=== PATIENT | female | born 1990 | race Caucasian/White ===

== ENCOUNTER 2019-04-30 23:11 | Inpatient (IN) | payer MEDICAID, OTHER ==
[~2019-04-30] VITALS: Ht 165.1 cm; Wt 77.4 kg
[2019-04-30] MEDS ORDERED: PREN-93 PO (23:23)
[2019-04-30 23:24] VITALS: BP 116/74; PULSE 74; RESP 18; Ht 165.1 cm; Wt 77.4 kg
[2019-05-01] MEDS ORDERED: MAGNESIUM SULFATE 20 GM/500 ML 500 ML IV SCH (00:54)
[2019-05-01] MEDS ORDERED: MAGNESIUM SULFATE 4 GM/100 ML 100 ML IV ONE (01:00)
[2019-05-01] MEDS ORDERED: AZITHROMYCIN 500 MG TAB PO ONE (01:00)
[2019-05-01] MEDS ORDERED: AMPICILLIN 2 GM/NS (PMX) 100 ML IV ONE (01:00)
--- NOTE | 2019-05-01 01:26 | TRIAGE ---
OB Triage Datetime Report Generated by CPN: 05/01/2019 01:25 Datetime: 05/01/2019 00:26 Comments: u/s at bedside Datetime: 05/01/2019 00:00 Labor Evaluation Frequency: X1 Monitor Mode: External Duration (sec)2399: 60 Quality: Mild Pattern: Normal: <= 5 Contractions in 10 Minutes Resting Tone [place]: Relaxed Heart Rate FHR Baseline Rate: 140 Monitor Mode: External US Variability: Moderate 6-25 bpm Accelerations: 15X15 Decelerations: Variable Comments: REVIEWED BY DR PEÑA Datetime: 04/30/2019 23:27 Time of Arrival: 04/30/2019 22:59 EGA: 32.1 Arrived By: Wheelchair Arrived From: Home Chief Complaint: cramping and vaginal leaking Movement: Present Contractions: Occasional Contractions: 30 min Rupture of Membranes: Unsure Vaginal Bleeding: None Vaginal Discharge: Denies Recent Sexual Intercouse: Denies Abdominal Trauma: Not Applicable Patient Complaints: Contractions; Cramping Time Provider Notified: 05/01/2019 23:05 Provider Notified: MARIANA Initial Plan: u/a, nst Datetime: 04/30/2019 23:19 Assessment Type: Triage Maternal Assessment Level of Consciousness: Keenly Alert, Responsive DTR's/Clonus: DTRs 2+; No Clonus Headache: Denies Blurred Vision: No Respiratory Effort: Unlabored; Regular Rhythm; Equal Expansion Breath Sounds, Left: Clear and Equal Breath Sounds, Right: Clear and Equal Nausea/Vomiting: Denies RUQ Epigastric Pain: Denies Lower Extremities Edema: None Degree: None Upper Extremities Edema: None Degree: None Facial Edema: None Fall Risk Assessment History of Falling: (0) No Secondary Diagnosis: (0) No Ambulatory Aid: (0) Bedrest/Nurse Assist IV Therapy: (0) No Gait: (0) Normal/Bedrest/Immobile Mental Status: (0) Oriented to Own Ability Fall Score: 0 Fall Risk Score Definition: No Risk: No action required Pain Assessment Pain Scale: 2 Pain Presence: Intermittent Pain Type: Cramping Pain Location: Abdomen Pain Goal: 2 Pain Relief Measures: Comfort Measures
[2019-05-01] MEDS: BETAMET NA PHOS/AC(6 MG/ML) 2 ML INJ SYG IM SCH (01:48)
[2019-05-01] MEDS: LACTATED RINGER'S 1,000 ML IV SCH ×2 (02:02→15:16)
[2019-05-01] MEDS: MAGNESIUM SULFATE 20 GM/500 ML 500 ML IV SCH ×3 (02:29→20:55)
[2019-05-01] MEDS: AMPICILLIN 1 GM/NS (PMX) 50 ML IV SCH ×5 (06:00→21:58)
[2019-05-01] MEDS: PRENATAL VITAMIN PO SCH (09:16)
[2019-05-01] MEDS: ACETAMINOPHEN 325 MG TAB PO PRN ×4 (09:16→21:58)
[2019-05-01] MEDS: AZITHROMYCIN 250 MG TAB PO SCH (09:22)
--- NOTE | 2019-05-01 09:51 | HP ---
Date/Time of Note Date/Time of Note DATE: 05/01/19 TIME: 09:37 OB - History Hx of Present Free Text/Dictation 28y.o who had x2 c/s presents triage with ?SROM with infrequent uc's' which started at 04/30/1904/13/2230, pain level 2/10 Her first was done for PIH . BPP 8/8 RAJNI 6.1 MVP 2.3 ROM plus positive, CVL 3.2 EFW 1798gm +/- 270 11% admitted for management for PPROM at 32w2d. Chief Complaint: ?SROM Estimated Due Date: Jun 24, 2019 : 3 Para: 2 Spontaneous : 0 Therapeutic : 0 Care: Other Ultrasounds: Other Obstetrical Complications: None Medical Complications: None Past Family/Social History * Past Medical, Surgical, Family and Obstetric Histories reviewed from chart. Blood Type: O+ Rubella: immune RPR/VDRL: Negative GBS Status: Unknown HBsAG: Negative OB Admission Exam Vital Signs Vital Signs Vital Signs Date Temp Pulse Resp B/P (MAP) Pulse Ox O2 O2 Flow FiO2 Time Delivery Rate 04/30/19 98.8 74 18 116/74 Room Air 23:24 (88) Physical Exam HEENT: WNL Heart: Rhythm Normal Lungs: Clear, Equal Abdomen: WNL Extremities: Normal Reflexes: Normal Cervical Dilatation: other Effacement: Other Station: Other (no VE CVL 3.2) Membranes: Ruptured Amniotic Fluid: Clear Heart Rate: 140's Accelerations: Accelerations Present Decelerations: No Decelerations Varibility: Moderate Contractions on Admission: >10 Minutes Apart Intensity: Mild Last 72 hours Lab Results CBC & BMP 05/01/19 01:24 Liver Function Test 05/01/19 01:24 Alanine Aminotransferase (ALT/SGPT) 13 Albumin 3.4 Alkaline Phosphatase 136 H Aspartate Amino Transf (AST/SGOT) 14 L Direct Bilirubin 0.00 Total Protein 7.0 Magnesium Level Test 05/01/19 06:14 Magnesium Level 4.4 H OB Assessment/Plan Reason for admission: rupture of membranes Other Assessment: IUP 32w2d PPROM Plan: Other (ampicillin and azythromycin, BMZx2, Magnesium sulfate,) Other plan: perinatalogy. neonatalogy consult DELIA PEÑA MD May 01, 2019 09:47
--- NOTE | 2019-05-01 15:28 | CONS ---
Consultation Date/Type/Reason Admit Date/Time May 01, 2019 at 00:49 Date of Consultation: May 01, 2019 Type of Consult Medicine Reason for Consultation Requested by Dr. Sun to curriculum counselor mother regarding anticipated course and complications of delivery @ 32 completed weeks of rehman. Mother is a 28 yo [id number] with EDC 06/24/2019 (EGA 32 2/7 wks). complicated by previous sections X 2 and hx genital HSV with no overt infection or prodrome this . Mother presented to L&D early AM 05/01 with PPROM and infrequent contractions. U/S demonstrated single fetus with estimated wt 1798 gm, RAJNI 6.1, and BPP 8/8. Treated with Ampicillin/Azithromycin; Magnesium sulfate, and Betamethasone with 1st dose @ 0148 hrs 05/01. At this time, mother remains afebrile with very infrequent contractions and no further leakage of fluid or bleeding. Met with mother and extended family at bedside with polysom tech. Discussed high survival rate of infants born at this gestation, especially having completed a course of steroids >24 hours prior to delivery. Discussed high likelihood of recurrent labor and delivery by repeat section within 1 week of PPROM. Discussed major morbidity associated with pulmonary function and high probability of requiring some form of respiratory assistance. Discussed primary concern regarding intraamniotic infection in view of PPROM and complications in terms of infection and outcome. Addressed problems related to GI function and neurologic immaturity as pertains to tolerating and mastering nipple feedings and eventual discharge. Emphasized importance of providing mother's milk. Advised that all infants born at this g estation are admitted to the NICU and discharge generally occurs @ 36-37 weeks, although highly variable depending on hospital course. Assured mother of availability to address any questions which may arise. Date/Time of Note DATE: 05/01/19 TIME: 14:58 Past Medical History Home Meds Reported Medications Vit No.124/Iron/FA ( Vitamin Tablet) 1 Each Tablet, 1 EACH PO DAILY, TAB 04/30/19 Medications Current Medications Lactated Ringer's 1,000 ml @ 75 mls/hr [id number] IV Last administered on 05/01/19at 02:02; Admin Dose 75 MLS/HR; Start 05/01/19 at 00:54 Betamethasone Acet/Betameth SodPhos ([place]el[place] Soluspan) 12 mg Q24H IM Last administered on 05/01/19 01:48; Admin Dose 12 MG; Start 05/01/19 at 01:00; Stop 05/02/19 at 01:01 Ampicillin 50 ml @ 100 mls/hr Q4H IV Last administered on 05/01/19 14:04; Admin Dose 100 MLS/HR; Start 05/01/19 at 05:00 Prenat Multivit/ [place]/Iron/Folic Ac () 1 tab DAILY PO Last administered on 05/01/19 09:16; Admin Dose 1 TAB; Start 05/01/19 at 09:00 Acetaminophen (Tylenol Tab) 650 mg Q4H PRN PO .PAIN OR TEMP Last administered on 05/01/19 09:16; Admin Dose 650 MG; Start 05/01/19 at 01:00 Azithromycin (Zithromax) 250 mg DAILY PO Last administered on 05/01/19 09:22; Admin Dose 250 MG; Start 05/01/19 at 09:00 Magnesium Sulfate 500 ml @ 50 mls/hr Q10H IV Last administered on 05/01/19 12:01; Admin Dose 50 MLS/HR; Start 05/01/19 at 01:30 Allergies: Coded Allergies: No Known Allergy (Unverified , 05/01/19) Social History Smoking Status: Never smoker Exam/Review of Systems Exam Vitals Vital Signs Date Temp Pulse Resp B/P (MAP) Pulse Ox O2 O2 Flow FiO2 Time Delivery Rate 05/01/19 97.8 10:27 04/30/19 74 18 116/74 Room Air 23:24 (88) Intake and Output 04/30/19 04/30/19 05/01/19 1515:00 23:00 07:00 IntakeIntake Total 425 ml OutputOutput Total 1750 ml BalanceBalance -1325 ml Results Result Diagram: 05/01/19 0124 05/01/19 0124 Results 24hrs Laboratory Tests Test 04/30/19 23:00 04/30/19 23:55 05/01/19 01:24 05/01/19 06:08 Urine Color YELLOW Urine Clarity CLEAR Urine pH 7.0 Urine Specific 1.012 [place] Urine Ketones NEGATIVE Urine Nitrite NEGATIVE Urine Bilirubin NEGATIVE Urine Urobilinogen NEGATIVE Urine Leukocyte NEGATIVE Esterase Urine Microscopic RBC 0 Urine Microscopic WBC 0 Urine Bacteria FEW A Urine Mucus FEW A Urine Hemoglobin NEGATIVE Urine Glucose NEGATIVE Urine Total Protein NEGATIVE Membranes POSITIVE H Rupture White Blood Count 9.9 Red Blood Count 3.41 L Hemoglobin 11.2 L Hematocrit 31.5 L Mean Corpuscular 92.4 Volume Mean Corpuscular 32.8 Hemoglobin Mean Corpuscular 35.6 Hemoglobin Concent Red Cell Distribution 13.0 Width Platelet Count 148 Mean Platelet Volume 10.8 H Immature Granulocytes 0.800 H % Neutrophils % 69.8 Lymphocytes % 20.7 Monocytes % 7.5 Eosinophils % 0.9 Basophils % 0.3 Nucleated Red Blood 0.0 Cells % Immature Granulocytes 0.080 H # Neutrophils # 6.9 Lymphocytes # 2.1 Monocytes # 0.8 Eosinophils # 0.1 Basophils # 0.0 Nucleated Red Blood 0.0 Cells # Sodium Level 140 Potassium Level 3.7 Chloride Level 109 Carbon Dioxide Level 24 Anion Gap 7 Blood Urea Nitrogen 9 Creatinine 0.52 Est Glomerular > 60 Filtrat Rate mL/min Glucose Level 99 Calcium Level 8.7 Total Bilirubin 0.3 Direct Bilirubin 0.00 Indirect Bilirubin 0.3 Aspartate Amino 14 L Transf (AST/SGOT) Alanine 13 Aminotransferase (ALT /SGPT) Alkaline Phosphatase 136 H Total Protein 7.0 Albumin 3.4 Globulin 3.60 H Albumin/Globulin 0.94 Ratio Lab Scanned Report REFERENCE LAB Test 05/01/19 06:14 05/01/19 11:49 Magnesium Level 4.4 H 5.0 H Medications Medication Current Medications Lactated Ringer's 1,000 ml @ 75 mls/hr [id number] IV Last administered on 05/01/19at 02:02; Admin Dose 75 MLS/HR; Start 05/01/19 at 00:54 Betamethasone Acet/Betameth SodPhos ([place] Soluspan) 12 mg Q24H IM Last administered on 05/01/19 01:48; Admin Dose 12 MG; Start 05/01/19 at 01:00; Stop 05/02/19 at 01:01 Ampicillin 50 ml @ 100 mls/hr Q4H IV Last administered on 05/01/19 14:04; Admin Dose 100 MLS/HR; Start 05/01/19 at 05:00 Prenat Multivit/ [employer]/Iron/Folic Ac () 1 tab DAILY PO Last administered on 05/01/19 09:16; Admin Dose 1 TAB; Start 05/01/19 at 09:00 Acetaminophen (Tylenol Tab) 650 mg Q4H PRN PO .PAIN OR TEMP Last administered on 05/01/19 09:16; Admin Dose 650 MG; Start 05/01/19 at 01:00 Azithromycin (Zithromax) 250 mg DAILY PO Last administered on 05/01/19 09:22; Admin Dose 250 MG; Start 05/01/19 at 09:00 Magnesium Sulfate 500 ml @ 50 mls/hr Q10H IV Last administered on 05/01/19 12:01; Admin Dose 50 MLS/HR; Start 05/01/19 at 01:30 WILIAN SAMPSON MD May 01, 2019 15:28
[2019-05-02] MEDS: BETAMET NA PHOS/AC(6 MG/ML) 2 ML INJ SYG IM SCH (01:49)
[2019-05-02] MEDS: AMPICILLIN 1 GM/NS (PMX) 50 ML IV SCH ×6 (01:49→21:30)
[2019-05-02] MEDS: LACTATED RINGER'S 1,000 ML IV SCH ×2 (04:13→17:46)
[2019-05-02] MEDS: MAGNESIUM SULFATE 20 GM/500 ML 500 ML IV SCH (06:54)
[2019-05-02] MEDS: PRENATAL VITAMIN PO SCH (10:17)
[2019-05-02] MEDS: AZITHROMYCIN 250 MG TAB PO SCH (10:34)
--- NOTE | 2019-05-02 23:29 | QN ---
Documentation Comment she reports small amount LOF per vagina she denies vaginal bleeding or contractions AF VSS Abdomen: soft, gravid not tender Ext: normal * IUP at 32.2 weeks * most probably PPROM. + ROM Plus and Oligo and pt c/o LOF per vagina * h/o C/S x 2 Plan: Continue with Abx and repeat RAJNI in am had steroids TEMO GARDUNO MD May 02, 2019 23:29
[2019-05-03] MEDS: AMPICILLIN 1 GM/NS (PMX) 50 ML IV SCH ×6 (01:46→21:03)
[2019-05-03] MEDS: LACTATED RINGER'S 1,000 ML IV SCH ×3 (04:28→23:03)
[2019-05-03] MEDS: PRENATAL VITAMIN PO SCH (09:06)
[2019-05-03] MEDS: AZITHROMYCIN 250 MG TAB PO SCH (09:26)
--- NOTE | 2019-05-03 19:51 | QN ---
Documentation Comment Comment she reports small amount LOF per vagina she denies vaginal bleeding or contractions AF VSS Abdomen: soft, gravid not tender Ext: normal * IUP at 32.3 weeks * PPROM. * h/o C/S x 2 Plan: Continue with Abx had steroids TEMO GARDUNO MD May 03, 2019 19:51
[2019-05-04] MEDS: AMPICILLIN 1 GM/NS (PMX) 50 ML IV SCH ×6 (00:55→21:19)
[2019-05-04] MEDS: PRENATAL VITAMIN PO SCH (08:05)
[2019-05-04] MEDS: LACTATED RINGER'S 1,000 ML IV SCH ×2 (09:31→17:26)
[2019-05-04] MEDS: AZITHROMYCIN 250 MG TAB PO SCH (10:10)
[2019-05-05] MEDS: AMPICILLIN 1 GM/NS (PMX) 50 ML IV SCH ×6 (00:56→21:13)
[2019-05-05] MEDS: LACTATED RINGER'S 1,000 ML IV SCH ×2 (02:13→10:02)
[2019-05-05] MEDS: PRENATAL VITAMIN PO SCH (08:59)
--- NOTE | 2019-05-05 09:27 | QN ---
Documentation Comment she reports small amount LOF per vagina she denies vaginal bleeding or contractions AF VSS Abdomen: soft, gravid not tender Ext: normal * IUP at 32.5 weeks * PPROM. * h/o C/S x 2 * Desires BTL, paper work is on the chart Plan: Continue with Abx had steroids Daily BPP RAJNI NST at times has decreased variability, but then baby become reactive and has accelerations. she is aware that will not prolonged after 34 weeks. TEMO GARDUNO MD May 05, 2019 09:27
[2019-05-05] MEDS: AZITHROMYCIN 250 MG TAB PO SCH (10:02)
[2019-05-06] MEDS: AMPICILLIN 1 GM/NS (PMX) 50 ML IV SCH ×6 (01:06→20:34)
[2019-05-06] MEDS: LACTATED RINGER'S 1,000 ML IV SCH ×4 (03:27→17:00)
[2019-05-06] MEDS: PRENATAL VITAMIN PO SCH (09:08)
[2019-05-06] MEDS: AZITHROMYCIN 250 MG TAB PO SCH (09:08)
[2019-05-06] MEDS ORDERED: MISOPROSTOL 200 MCG TAB PR PRN ×2 (10:30→19:00)
[2019-05-06] MEDS ORDERED: METHYLERGONOVINE 0.2 MG INJ IM PRN (10:30)
[2019-05-06] MEDS ORDERED: OXYTOCIN 30 UNITS/LR 500 ML IV PRN (10:30)
[2019-05-06] MEDS ORDERED: CARBOPROST 250 MCG INJ IM PRN (10:30)
[2019-05-06] MEDS ORDERED: OXYTOCIN 30 UNITS/LR 500 ML IV SCH (10:30)
[2019-05-06] MEDS ORDERED: CEFAZOLIN 2 GM/50 ML (PMX) 50 ML IVPB SCH (10:30)
--- NOTE | 2019-05-06 11:03 | PREAC ---
Date/Time of Note Date/Time of Note DATE: 05/06/19 TIME: 11:01 Anesthesia Eval and Record Evaluation Time Pre-Procedure Interview DATE: 05/06/19 TIME: 11:01 Age 28 Sex female NPO: 2 hrs (Ate breakfast 1t 9 am full breakfast) Preoperative diagnosis Repeat in labor with BTL request Planned procedure and BTL Past Medical History Past Medical History: Includes Heme: Anemia : : (3), Para: (2), Gestational age: (33) Surgery & Anesthesia Issues No known issue Meds Anticoagulation: No Beta [place] within 24 hr: No Reason Beta Alton not given: Pt. not on B-[place] Reported Medications Vit No.124/Iron/FA ( Vitamin Tablet) 1 Each Tablet, 1 EACH PO DAILY, TAB 04/30/19 Current Medications Ampicillin 50 ml @ 100 mls/hr Q4H IV Last administered on 05/06/19at 09:08; Admin Dose 100 MLS/HR; Start 05/01/19 at 05:00 Prenat Multivit/ [place]/Iron/Folic Ac () 1 tab DAILY PO Last administered on 05/06/19at 09:08; Admin Dose 1 TAB; Start 05/01/19 at 09:00 Acetaminophen (Tylenol Tab) 650 mg Q4H PRN PO .PAIN OR TEMP Last administered on 05/01/19at 21:58; Admin Dose 650 MG; Start 05/01/19 at 01:00 Azithromycin (Zithromax) 250 mg DAILY PO Last administered on 05/06/19at 09:08; Admin Dose 250 MG; Start 05/01/19 at 09:00 Lactated Ringer's 1,000 ml @ 125 mls/hr Q8H IV Last administered on 05/06/19at 03:27; Admin Dose 125 MLS/HR; Start 05/04/19 at 09:00 Cefazolin Sodium/ Dextrose 50 ml @ 100 mls/hr ONCE IVPB ; Start 05/06/19 at 10:30 Oxytocin/Lactated Ringer's 500 ml @ 125 mls/hr POST IV ; Start 05/06/19 at 10:30 Oxytocin/Lactated Ringer's 500 ml @ 0 mls/hr ONCE PRN IV .VAGINAL BLEEDING; Start 05/06/19 at 10:30 Methylergonovine Maleate (Methergine) 0.2 mg ONCE PRN IM .VAGINAL BLEEDING; Start 05/06/19 at 10:30 Carboprost Tromethamine (Hemabate) 250 mcg ONCE PRN IM .VAGINAL BLEEDING; Start 05/06/19 at 10:30 Misoprostol (Cytotec) 1,000 mcg ONCE PRN [place] .VAGINAL BLEEDING; Start 05/06/19 at 10:30 Meds reviewed: Yes Allergies Coded Allergies: No Known Allergy (Unverified , 05/01/19) Allergies Reviewed: Yes Labs/Studies Labs Reviewed: Reviewed by anesthesiologist Result Diagram: 05/04/1920 test: Positive Studies: ECG (n/a), CXR (n/a) Pre-procedure Exam Airway: Adequate mouth opening, Adequate thyromental dist Mallampati: Mallampati II Teeth: Normal Lung: Normal Heart: Abnormal ASA Physical Status ASA physical status: 2 Emergency: None Planned Anesthetic Neuraxial: Spinal Planned Pain Management Sub-arachniod narcotics, Parenteral pain med Pre-operative Attestations Prior to commencing anesthesia and surgery, the patient was re-evaluated, there was verification of: *The patient's identity *The results of appropriate recent lab work and preoperative vital signs *The above evaluation not changing prior to induction *Anesthetic plan, risk benefits, alternative and complications discussed with patient/family; questions answered; patient/family understands, accepts and wis hes to proceed. SREEKANTH PEREZ MD May 06, 2019 11:03
[2019-05-06] MEDS ORDERED: CITRIC ACID/NA CITRATE 30 ML CUP PO ONE (11:30)
[2019-05-06] MEDS ORDERED: ONDANSETRON 4 MG INJ IV ONE (11:30)
[2019-05-06] MEDS ORDERED: OXYTOCIN 10 UNIT INJ ONE (17:20)
[2019-05-06] MEDS ORDERED: morphine SULFATE/PF (10 MG/10 ML) INJ ONE (17:20)
[2019-05-06] MEDS ORDERED: PHENYLephrine (100 MCG/ML) 10ML SYG ONE (17:20)
[2019-05-06] MEDS ORDERED: OXYTOCIN 30 UNITS/LR 500 ML BAG IV ONE (17:20)
--- NOTE | 2019-05-06 17:29 | HP ---
Date/Time of Note Date/Time of Note DATE: 05/06/19 TIME: 17:26 OB - History Hx of Present Free Text/Dictation 28 YO with EDC 06/24/2019 with IUP at 33 weeks who was admitted for PPROM. she has h/o c/s x 2. she reports painful UCs today and she uterine tenderness on exam. The patient with history of previous delivery, who desires to have repeat delivery and Permanent sterilization. I discussed with the patient the risks, benefits, indications, and alternatives of procedure includi ng but not limited to risks of infection, bleeding, damage to other organs, bowel, bladder, hernia formation, scar formation, possibility of blood transfusion, possible need for emergency hysterectomy, as well as the fact that tubal ligation may fail and there is 1 to 2% risk of failure over lifetime of tubal ligations and the fact that tubal ligation is permanent and irreversible. She was allowed to ask questions. All her questions were answered. Informed consent has been obtained. Care: Good Care Ultrasounds: Normal mid trimester US Obstetrical Complications: Other (PPROM) Medical Complications: None Past Family/Social History * Past Medical, Surgical, Family and Obstetric Histories reviewed from chart. OB Admission Exam Physical Exam HEENT: WNL Heart: Rhythm Normal Lungs: Clear, Equal Abdomen: Abnormal (soft, gravid, 1+ tenderness over fundus) Extremities: Normal Reflexes: Normal Last 72 hours Lab Results CBC & BMP 05/04/19 09:20 05/06/19 10:36 OB Assessment/Plan Other Assessment: Assessment: PPROM IUP 33 weeks h/o previous Desires repeat Desires permanent sterilization labor, possible Chorioamnionitis Other plan: Repeat Delivery Tubal ligation may be done by either salpingectomy or modified clover BTL TEMO GARDUNO MD May 06, 2019 17:29
[2019-05-06] MEDS ORDERED: ALBUMIN HUMAN 5% 250 ML IV PRN (17:30)
[2019-05-06] MEDS ORDERED: METOCLOPRAMIDE 10 MG INJ IV PRN (17:30)
[2019-05-06] MEDS ORDERED: EPHEDrine 25 MG/5 ML SYG IV PRN (17:30)
[2019-05-06] MEDS ORDERED: ACETAMINOPHEN 500 MG TAB PO PRN (17:30)
[2019-05-06] MEDS ORDERED: MEPERIDINE 25 MG INJ IV PRN (17:30)
[2019-05-06] MEDS ORDERED: OXYCODONE/ACETAMINOPHEN (5/325) TAB PO PRN ×3 (17:30→19:00)
[2019-05-06] MEDS ORDERED: ONDANSETRON 4 MG INJ IV PRN ×2 (17:30)
[2019-05-06] MEDS ORDERED: HYDROmorphONE 1 MG/5 ML IV SYRINGE IV PRN ×2 (17:30)
[2019-05-06] MEDS ORDERED: NALOXONE (0.4 MG/ML) INJ IV PRN (17:30)
[2019-05-06] MEDS ORDERED: HYDROCODONE/APAP (5/325) TAB PO PRN (17:30)
[2019-05-06] MEDS ORDERED: NALBUPHINE HCL (10 MG/1 ML) INJ IV PRN (17:30)
[2019-05-06] MEDS ORDERED: FENTAnyl 50 MCG/ML VIAL IV PRN ×2 (17:30)
[2019-05-06] MEDS ORDERED: morphine 2 MG INJ IV PRN ×2 (17:30)
[2019-05-06] MEDS ORDERED: HYDROmorphONE 0.5 MG/0.5 ML SYG IV PRN ×2 (17:30)
[2019-05-06] MEDS ORDERED: DIPHENHYDRAMINE 50 MG INJ IV PRN ×2 (17:30)
[2019-05-06] MEDS ORDERED: METOCLOPRAMIDE 10 MG INJ ONE (17:43)
[2019-05-06] MEDS ORDERED: DEXAMETHASONE 4 MG/ML 1 ML INJ ONE (17:43)
[2019-05-06] MEDS ORDERED: KETOROLAC 30 MG INJ ONE (17:44)
[2019-05-06] MEDS ORDERED: FENTAnyl 50 MCG/ML VIAL ONE (17:55)
[2019-05-06] MEDS ORDERED: LACTATED RINGER'S 1,000 ML IV SCH (18:31)
--- NOTE | 2019-05-06 18:31 | OPR ---
Date/Time of Note Date/Time of Note DATE: 05/06/19 TIME: 18:28 Operative Report Procedure Date: May 06, 2019 Preoperative Diagnosis IUP at 33 weeks PPROM Labor h/o C/S x 2 Desires Permanent sterilization Postoperative Diagnosis same Operation/Procedure Performed Repeat delivery Bilateral distal salpingectomies Surgeon Marisa Sun Accounting Machine Operator Dr. Senior Anesthesia Type: spinal Estimated Blood Loss: other (600 ml) Transfusion none Specimen segments of bilateral tubes Grafts/Implants none Tubes/Drains [place] Cath Complications none Pt Condition Post Procedure: stable Disposition: PACU Procedure Description The risks, benefits, indications, alternatives of procedure including, but not limited to risk of infection, bleeding, damage to other organs, bowel, bladder, hernia formation, scar formation, possibility of blood transfusions, the risks of tubal ligation such as failure and future pregnancies were discussed with the patient. The fact that BTL is permanent and irreversible also discussed with patient. She was allowed to ask questions. All her questions were answered. Informed consent was obtained. DESCRIPTION OF PROCEDURE: She was taken to the operating room. Spinal anesthesia was induced. She was prepped and draped in the usual sterile fashion. Surgical time out one. Anesthesia was tested to be adequate. With permission from anesthesiologist, a knife was used to make a Pfannenstiel skin incision. The incision was taken down in layers. The fascia was cut, undermined and from the underlying muscle using sharp and blunt dissection. All the bleeders were cauterized. Peritoneum was entered bluntly. A low transverse incision was developed over the uterus. Amniotic fluid was clear and adequate. A viable infant in vertex presentation was delivered without any difficulty. The cord was clamped and cut, handed to awaiting team. Placenta was then delivered. Uterus was exteriorized, wrapped around a moist lap. Inside uterus was cleaned using a dry lap. All residual membranes were removed. The uterine incision was then closed using #1 Monocryl in 2 layers. A 5 cm distal end of the right tube was ligated 3 times using 0 plain tie and the ligated portion was cut, sent to pathology. Same procedure was done on the contralateral side. The uterus was inserted back inside the abdominal cavity. Irrigation was done carefully. Careful evaluation of the uterine incision revealed no further bleeding. The tubal ligation sites were evaluated carefully. There was no ble eding. The peritoneum and rectus muscles and fascia were evaluated. All bleeders cauterized. Peritoneum was closed using 2-0 Monocryl. At this time, the count was correct. Rectus muscle was reapproximated using 2-0 Monocryl. Rectus fascia was closed using #1 Vicryl. Subcutaneous tissue was cleaned and irrigated. All bleeders cauterized and the skin closed using 4-0 Monocryl. All counts correct. MARISA SUN MD May 06, 2019 18:31
[2019-05-06] MEDS ORDERED: LANOLIN HPA 1 PKT TOP PRN (19:00)
[2019-05-06] MEDS ORDERED: NA PHOSPHATE/BIPHOS 133 ML ENEMA PR PRN (19:00)
[2019-05-06] MEDS: SENNA/DOCUSATE NA (8.6MG/50MG) TAB PO SCH (21:00)
[2019-05-06 21:40] VITALS: BP 120/77; PULSE 68; RESP 20
--- NOTE | 2019-05-06 23:49 | PAC ---
Date/Time of Note Date/Time of Note DATE: 05/06/19 TIME: 23:49 Post-Anesthesia Notes Post-Anesthesia Note Last documented vital signs Vital Signs Date Temp Pulse Resp B/P (MAP) Pulse Ox O2 O2 Flow FiO2 Time Delivery Rate 05/06/19 98.1 68 20 120/77 97 Room Air 21:40 (91) Activity: WNL Respiratory function: WNL Cardiovascular function: WNL Mental status: Baseline Pain reasonably controlled: Yes Hydration appropriate: Yes Nausea/Vomiting absent: Yes SREEKANTH PEREZ MD May 06, 2019 23:49
[2019-05-07] MEDS: LACTATED RINGER'S 1,000 ML IV SCH (01:35)
[2019-05-07 04:32] VITALS: BP 121/64; PULSE 72; RESP 20
[2019-05-07] MEDS: IBUPROFEN 600 MG TAB PO SCH ×5 (06:00→23:45)
[2019-05-07 08:00] VITALS: BP 100/58; PULSE 68; RESP 18; RESP 20
[2019-05-07] MEDS: SENNA/DOCUSATE NA (8.6MG/50MG) TAB PO SCH ×3 (10:52→23:44)
[2019-05-07] MEDS: PRENATAL VITAMIN PO SCH (10:52)
[2019-05-07] MEDS: AZITHROMYCIN 250 MG TAB PO SCH (10:52)
[2019-05-07] MEDS: KETOROLAC 30 MG INJ IV PRN ×2 (11:26→17:31)
--- NOTE | 2019-05-07 11:52 | QN ---
Documentation Comment POD #1 s/p repeat with BTL at 32 weeks for PPROM/chorioamnionitis. Pt is doing well with excellent pain management. No N/V. Tolerating her diet. Still with a link. T= 98.9 BP 100/58 Fundus NT, at umbilicus. Dressing C/D/I. Ext with A-pumps, NT. WBC 18.1 Hgb 8.9 Plts 152K P: Continue care. Will repeat the CBC tomorrow. D/C link this afternoon after pt tries sitting at edge of bed and ambulating and feels ready for it. NATASHA MEDRANO MD May 07, 2019 11:52
[2019-05-07 12:00] VITALS: BP 106/67; PULSE 88; RESP 18
[2019-05-07 16:00] VITALS: BP 101/61; PULSE 76; RESP 18
[2019-05-07 20:00] VITALS: BP_SYST 100; BP_SYST 128; BP_DIAS 67; BP_DIAS 69; PULSE 75; RESP 19
[2019-05-08 04:30] VITALS: BP 92/50; PULSE 62; RESP 19
[2019-05-08] MEDS: IBUPROFEN 600 MG TAB PO SCH ×2 (05:44→11:45)
[2019-05-08 08:00] VITALS: BP 107/74; PULSE 67; RESP 18
[2019-05-08] MEDS: PRENATAL VITAMIN PO SCH (09:08)
[2019-05-08] MEDS: AZITHROMYCIN 250 MG TAB PO SCH (09:08)
[2019-05-08] MEDS: SENNA/DOCUSATE NA (8.6MG/50MG) TAB PO SCH (09:09)
--- NOTE | 2019-05-08 12:22 | DS ---
Date/Time of Note Date/Time of Note DATE: 05/08/19 TIME: 12:20 Obstetrical Discharge Record Final Diagnosis Final Diagnosis: delivered Other Final Diagnosis PPROM, s/p R C/S and BTL at 33 weeks. + Flatus, good pain control on oral meds, tolerating regular diet. desires to go home. Vaginal Delivery Obstetrical Delivery: Bilateral Tubal Ligation Section Section: Repeat Complications Complications: Low weight 1500-2500gms Complications Labor, Other (PPROM) Augmentation: No Induction: No Tocolytics: Magnesium Sulfate Rupture of Membranes: Yes Gestational Age at Rupture 32 Condition on Discharge Physical Assessment Voiding: Yes Bowel Movement: Yes Breast: Soft, non-tender, Filling Fundus: Firm Abdomen and Incision: soft, appropriate tenderness Calf Tenderness: No Patient Condition: Good TEMO GARDUNO MD May 08, 2019 12:22
[2019-05-09] MEDS ORDERED: DIPHTH/TET/ACEL PERTUSS (ADULT) 0.5 ML VIAL IM* ONE (09:00)
[2019-05-09] MEDS ORDERED: MEASLES,MUMPS,RUBELLA VACCINE INJ SC* ONE (09:00)
--- NOTE | 2019-05-09 16:58 | DELSUM ---
Delivery Summary A-C Datetime Report Generated by CPN: 05/09/2019 16:58 DELIVERY PERSONNEL Service And Repair Supervisor: Sebunnya, Phoebe MATERNAL INFORMATION Delivery Anesthesia: Spinal Medications in Delivery: SEE ANESTHESIA RECORD Delivery QBL (ml): 600 Placenta Cultured: Yes LABOR SUMMARY EDC: 06/24/2019 00:00 No. Babies in Womb: 1 Attempted: No Labor Anesthesia: None LABOR INFORMATION Reason for Induction: Not Applicable Group B Beta Strep: Not Done Antibiotics # of Doses: 35 Antibiotics Time of Last Dose: 05/06/2019 17:20 Steroids Given: Full Course Reason Steroids Not Administered: Not Applicable MEMBRANES Membranes Rupture Method: Spontaneous Rupture of Membranes: 04/30/2019 22:00 Length of Rupture (hr): 139.75 Amniotic Fluid Color: Clear Amniotic Fluid Amount: Small Amniotic Fluid Odor: Normal STAGES OF LABOR Stage 3 hr: 0 Stage 3 min: 1 CSECTION DELIVERY Primary Indication: Other Other Primary Indication: PPROM IN LABOR Secondary Indication: Repeat Elective CSection Urgency: Elective CSection Incidence: Repeat Labor: Labor Elective: Elective CSection Incision: Lower Uterine Transverse Sterilization Procedure: [place] BABY A INFORMATION Infant Delivery Date/Time: 05/06/2019 17:45 Method of Delivery: Born in Route : No : N/A Forceps: N/A Vacuum Extraction: N/A Shoulder Dystocia : N/A SHOULDER DYSTOCIA BABY A Infant Delivery Date/Time: 05/06/2019 17:45 PRESENTATION/POSITION BABY A Presentation: na Cephalic Presentation: na Vertex Position: na Breech Presentation: Double Footling PLACENTA INFORMATION BABY A Placenta Delivery Time : 05/06/2019 17:46 Placenta Method of Delivery: Manual Removal Placenta Status: Delivered SCORES BABY A Heart Rate 1 min: >100 bpm Resp Effort 1 min: Good Cry Reflex Irritability 1 min: Cough/Sneeze/Pulls Away Muscle Tone 1 min: Active Motion Color 1 min: Blue/Pale Resuscitation Effort 1 min: Tactile Stimulation SCORE 1 MIN: 8 Heart Rate 5 min: >100 bpm Resp Effort 5 min: Good Cry Reflex Irritability 5 min: Cough/Sneeze/Pulls Away Muscle Tone 5 min: Active Motion Color 5 min: Body [place], Extremit Blue Resuscitation Effort 5 min: Tactile Stimulation SCORE 5 MIN: 9 INFANT INFORMATION BABY A Gestational Age at Delivery: 33.0 Gestational Status: - <34 Weeks Infant Outcome : Liveborn, with signs of life Infant Condition : Stable Infant Sex: Female IDENTIFICATION/MEDS BABY A ID Band Number: [id number] ID Band Location: Right Leg; Left Arm Sensor Applied: No Vitamin K Given : Not Given Erythromycin Given: Not Given WEIGHT/LENGTH BABY A Infant Birthweight (gm): 1910 Infant Weight (lb): 4 Infant Weight (oz): 3 Length (in): 17.00 Length (cm): 43.18 CORD INFORMATION BABY A No. Cord Vessels: 3 Nuchal Cord : N/A Nuchal Cord- Other: 0 True Knot: 0 Infant Cord pH Baby Arterial: 7.35 Cord pH Baby Venous: 7.40 Cord Blood Taken: Yes Banking/Donate Info: NO Infant Suction: Mouth; Nose ASSESSMENT BABY A Physical Findings at Delivery: Within Normal Limits Respirations: Appears Normal Corporate Associate/ALS Called : Yes Infant Care By: DR AQUINO Transferred To: NICU
== END 2019-05-08 14:20 | disposition home or self-care (01) | DRG 783 ==
LOC: OBT 23:11 → L-D 23:12 → OBT 05-01 00:49 → L-D 05-01 02:09 → PP1 05-06 21:38
PROVIDERS: ADMIT Specialist; ATTEND Specialist
PROC: 0UT70ZZ Resection of Bilateral Fallopian Tubes, Open Approach (ICD-10-PCS; 2019-05-06)
PROC: 10D00Z1 Extraction of Products of Conception, Low, Open Approach (ICD-10-PCS; principal; 2019-05-06 17:45)
DX: O60.13X0 Preterm labor second trimester with preterm delivery third trimester, not applicable or unspecified (principal); O41.1230 Chorioamnionitis, third trimester, not applicable or unspecified; O99.02 Anemia complicating childbirth; Z3A.33 33 weeks gestation of pregnancy; Z37.0 Single live birth; Z30.2 Encounter for sterilization
CPT/HCPCS: 76815; 76817; 76818; 80053; 81003; 83735; 84112; 85025; 85610; 85730; 86592; 86850; 86900; 86901; 87086; 87340; 88302; 88307; 99464; G0463; J0290; J0690; J0702; J1100; J1885; J2274; J2370; J2405; J2590; J2765; J3010; J3475; J7120